=== PATIENT | male | born 1970 | race Caucasian/White ===

== ENCOUNTER 2018-11-12 16:42 | Emergency (ER) | payer SELFPAY ==
--- NOTE | 2018-11-12 16:49 | PDOC ---
Rapid Medical Evaluation Time Seen by Provider: 11/12/18 16:47 Medical Evaluation: Allergies Allergy/AdvReac Type Severity Reaction Status Date / Time No Known Allergies Allergy Unverified 01/10/18 19:09 11/12/18 16:47 I have performed a brief in-person evaluation of this patient. The patient presents with a chief complaint of: left hand pain s/p striking a wall Pertinent physical exam findings: swelling present to dorsum of left hand. abrasion to MCP of 3rd digit. TTP over 3rd metacarpal. Right hand dominant. I have ordered the following:xray The patient will proceed to the ED for further evaluation. Discharge Disposition - Diagnosis Hand injury - Referrals - Patient Instructions - Post Discharge Activity
[2018-11-12 16:52] VITALS: BP 158/117; PULSE 80; TEMP 98; BMI 28.5
--- NOTE | 2018-11-12 17:47 | PDOC ---
History of Present Illness - General Chief Complaint: Injury Stated Complaint: INJURY Time Seen by Provider: 11/12/18 16:47 - History of Present Illness Initial Comments: 11/12/18 17:45 48 y/o male without comorbidities presents for evaluation of left hand pain after punching a wall last night. Past History - Past Medical History Allergies/Adverse Reactions: Allergies Allergy/AdvReac Type Severity Reaction Status Date / Time No Known Allergies Allergy Unverified 11/12/18 16:52 Home Medications: Ambulatory Orders NK [No Known Home Medication] 01/10/18 COPD: No - Immunization History Immunization Up to Date: Yes - Suicide/Smoking/Psychosocial Hx Smoking History: Never smoked Have you smoked in the past 12 months: No Information on smoking cessation initiated: No Hx Alcohol Use: No Drug/Substance Use Hx: No Substance Use Type: Alcohol Review of Systems - Review of Systems Musculoskeletal: Yes: See HPI *Physical Exam - Vital Signs Last Vital Signs Temp Pulse Resp BP Pulse Ox 98 F 80 18 158/117 H 98 11/12/18 16:48 11/12/18 16:48 11/12/18 16:48 11/12/18 16:48 11/12/18 16:48 - Physical Exam Comments: 11/12/18 17:45 Left hand skin color and temperature are normal. There is a superficial abrasion on the dorsum of the second MCP J. There is a moderate amount of dorsal swelling. Diffuse tenderness about the dorsum of the hand. Decreased range of motion at terminal flexion of all joints. FDS and FDP work independently in all fingers. No gross sensorimotor deficits. Neurovascularly intact. Medical Decision Making - Medical Decision Making 11/12/18 17:46 No acute fracture on x-ray recommend range of motion no splinting follow-up with orthopedic *DC/Admit/Observation/Transfer Diagnosis at time of Disposition: Hand injury - Discharge Dispostion Disposition: HOME Condition at time of disposition: Stable Decision to Admit order: No - Referrals Referrals: Mark Whitaker DO [Staff Physician] - - Patient Instructions Printed Discharge Instructions: DI for Hand Injury Additional Instructions: Tylenol Motrin as directed for pain. Return to the emergency room for worsening symptoms and follow-up with orthopedic surgery should symptoms worsen within the next 1-2 days. - Post Discharge Activity
== END 2018-11-12 17:55 | disposition home or self-care (01) ==
LOC: JERFT 16:42
DX: S69.82XA Other specified injuries of left wrist, hand and finger(s), initial encounter (principal); W22.8XXA Striking against or struck by other objects, initial encounter; X83.8XXA Intentional self-harm by other specified means, initial encounter; Y92.89 Other specified places as the place of occurrence of the external cause; Y99.8 Other external cause status
CPT/HCPCS: 73110-TC-LT-FY; 73130-TC-LT-FY; 99281-25